=== PATIENT | female | born 1975 | race Caucasian/White ===

== ENCOUNTER 2016-10-25 13:11 | Emergency (ER) | payer OTHER, MEDICARE ==
[~2016-10-25] VITALS: Ht 162.6 cm; Wt 99.8 kg
[~2016-10-25 13:11] MED LIST: ALPRAZOLAM1 MG PO; CLONAZEPAM1 MG PO; DULOXETINE HYDR60 MG PO; HYDROXYZINE HCL25 MG PO; HYDROXYZINE50 MG PO; KELNOR 1/35 351 TAB PO; LOSARTAN POTASS50 MG PO; METFORMIN HCL750 MG PO; METFORMIN HYDR500 MG PO; MONTELUKAST SOD10 MG PO; NASONEX0.05 MG/Ac INH; PANTOPRAZOLE SO40 MG PO; QUETIAPINE FUM300 MG PO; SPIRONOLACTONE100 MG PO; TOPIRAMATE200 MG PO
--- NOTE | 2016-10-25 13:21 | ED PSYCHIATRIC COMPLAINT ---
See Addendum History of Present Illness General Chief Complaint: Psychiatric Related Complaint Stated Complaint: BIBA FOR +SI, PSYCH EVAL Source: patient, old records, EMS Exam Limitations: no limitations Vital Signs & Intake/Output Vital Signs & Intake/Output Vital Signs Date Time Temp Pulse Resp B/P B/P Pulse O2 O2 Flow FiO2 Mean Ox Delivery Rate 10/26 0624 98.8 73 20 109/57 99 Room Air 10/25 2225 98.0 74 16 102/65 95 Room Air 10/25 1951 97.7 77 16 97/53 99 Room Air 10/25 1900 97.6 83 12 110/52 100 Room Air 10/25 1549 97.9 93 12 104/58 100 Room Air 10/25 1349 Room Air 10/25 1330 97.6 80 18 133/80 100 ED Intake and Output 10/26 0000 10/25 1200 Intake Total Output Total Balance Patient 220 lb Weight Weight Reported by Patient Measurement Method Allergies Coded Allergies: tetanus and diphtheria toxoids (PT PASSED OUT FOR 12 HRS WHEN SHE WAS 12 ) Reconcile Medications Chlorpromazine HCl 200 MG TABLET 1 TAB PO QPM MENTAL HEALTH (Reported) Chlorpromazine HCl 50 MG TABLET MENTAL HEALTH (Reported) Duloxetine HCl 60 MG CAPSULE.DR 1 CAP PO BID MENTAL HEALTH (Reported) Ethynodiol D-Ethinyl Estradiol (Zovia 1-35E Tablet) 1 MG-35 MCG TABLET 1 TAB PO DAILY PCOS (Reported) Gabapentin 300 MG CAPSULE 1 CAP PO TID MENTAL HEALTH (Reported) Hydroxyzine HCl 50 MG TABLET 1 TAB PO TID ANXIETY (Reported) Losartan Potassium 50 MG TABLET 1 TAB PO DAILY HTN (Reported) Metformin HCl (Metformin HCl ER) 750 MG TAB.ER.24H 1 TAB PO BID PCOS ( Reported) Pantoprazole Sodium 40 MG TABLET.DR 1 TAB PO DAILY GI (Reported) Spironolactone 100 MG TABLET 1 TAB PO DAILY FLUID (Reported) Topiramate 100 MG TABLET 1 TAB PO BID UNKNOWN (Reported) Triage Nurses Notes Reviewed? yes HPI: Patient went to see her psychiatrist this morning for increasing depression with suicidal ideations. Patient states that she wants to overdose on her medications but they are all locked up. Patient was placed on a PEC and was sent for evaluation. Patient denies any homicidal ideations. Patient states that she has been taking her medications as prescribed. Patient denies any hallucinations. (DARY WAHL MD) Past History Travel History Traveled to [place] past 21 day No Medical History Any Pertinent Medical History? see below for history Neurological: None EENT: NONE Cardiovascular: hypertension, hyperlipidemia Respiratory: NONE Gastrointestinal: NONE Hepatic: NONE Renal: nephrolithiasis Musculoskeletal: NONE Psychiatric: anxiety, depression Endocrine: NONE Blood Disorders: NONE Cancer(s): NONE MUTUAL FUNDS AGENT/Reproductive: PCOS Surgical History Surgical History: non-contributory Psychosocial History Who do you live with Spouse What is your primary language Kiswahili Tobacco Use: Never used ETOH Use: denies use Illicit Drug Use: denies illicit drug use Family History Hx Contributory? No (DARY WAHL MD) Review of Systems Review of Systems Constitutional: Reports: no symptoms. EENTM: Reports: no symptoms. Respiratory: Reports: no symptoms. Cardiovascular: Reports: no symptoms. GI: Reports: no symptoms. Genitourinary: Reports: no symptoms. Musculoskeletal: Reports: no symptoms. Skin: Reports: no symptoms. Neurological/Psychological: Reports: see HPI, depressed. Hematologic/Endocrine: Reports: no symptoms. Immunologic/Allergic: Reports: no symptoms. All Other Systems: Reviewed and Negative (MARYURI EVANGELISTA,DARY Hdz) Physical Exam Physical Exam General Appearance: well developed/nourished, alert, awake, mild distress Head: atraumatic Eyes: Bilateral: PERRL, EOMI. Ears, Nose, Throat: normal pharynx, normal ENT inspection, hearing grossly normal Neck: normal inspection, supple Respiratory: normal breath sounds, chest non-tender, no respiratory distress, lungs clear Cardiovascular: regular rate/rhythm Gastrointestinal: normal bowel sounds, soft, non-tender Extremities: normal range of motion Neurological/Psychiatric: no motor/sensory deficits, awake, alert, flat Appearance/Memory/Insight: appropriate appearance, appropriate insight Behavoir/Eye Contact/Speech: cooperative, normal speech, good eye contact Thoughts/Hallucinations: normal thought pattern, no apparent hallucination Skin: intact, normal color, warm/dry SAD PERSONS Done? CRISIS CONSULT OBTAINED (DARY WAHL MD) Progress Differential Diagnosis: drug intoxication, drug overdose, drug withdrawal, electrolyte abnormality Plan of Care: Orders Procedure Date/time Status Continuous Observation Monitor 10/26 0700 Active Continuous Observation Monitor 10/26 0300 Active Regular Diet 10/25 D Active Continuous Observation Monitor 10/25 2300 Active Continuous Observation Monitor 10/25 1900 Active Continuous Observation Monitor 10/25 1319 Active URINE DRUGS OF ABUSE 10/25 1319 Complete HUMAN BETA HCG SCREEN 10/25 1319 Complete ETHANOL 10/25 1319 Complete COMPREHENSIVE METABOLIC PANEL 10/25 1319 Complete CBC WITHOUT DIFFERENTIAL 10/25 131 Complete ED CRISIS PSYCH CONSULT 10/25 1319 Active Current Medications Sig/Joelle Start time Last Medication Dose Stop Time Status Admin Duloxetine HCl 60 MG DAILY 10/26 1000 UNVr (Cymbalta) Losartan Potassium 50 MG DAILY 10/26 1000 UNVr (Cozaar) Spironolactone 100 MG DAILY 10/26 1000 UNVr (Aldactone) Metformin HCl 850 MG 0800,1700 10/26 0800 UNVr (Glucophage) Chlorpromazine 200 MG QPM 10/25 2200 UNV 10/25 (Thorazine 25MG Tab) 2204 Topiramate 100 MG BID 10/25 2200 UNVr (Topamax) Chlorpromazine 50 MG TID 10/25 1718 UNVr 10/25 (Thorazine 25MG Tab) 1731 Gabapentin 300 MG TID 10/25 171 UNVr 10/25 (Neurontin) 220 Hydroxyzine HCl 50 MG TID 10/25 171 UNVr 10/25 (Atarax) 2204 Laboratory Tests 10/25/16 1418: Urine Opiates Screen < 100.00, Methadone Screen 62, Barbiturate Screen < 60, Ur Phencyclidine Scrn < 6.00, Amphetamines Screen < 100, U Benzodiazepines Scrn < 85, Urine Cocaine Screen < 50, Urine Cannabis Screen < 5.00 10/25/16 1340: Anion Gap 12, Estimated GFR > 60, BUN/Creatinine Ratio 10.0, Glucose 84, Calcium 9.9, Total Bilirubin 0.4, AST 17, ALT 37, Alkaline Phosphatase 111, Total Protein 6.8, Albumin 4.2, Globulin 2.6, Albumin/Globulin Ratio 1.6, Total Beta HCG NEGATIVE, CBC w Diff NO MAN DIFF REQ, RBC 4.36, MCV 72.1 L, MCH 22.6 L, RDW 19.4 H, MPV 7.9, Gran % 70.0, Lymphocytes % 21.4, Monocytes % 6.7, Eosinophils % 1.5, Basophils % 0.4, Absolute Granulocytes 5.0, Absolute Lymphocytes 1.5, Absolute Monocytes 0.5, Absolute Eosinophils 0.1, Absolute Basophils 0, PUBS MCHC 31.4 L, Serum Alcohol < 10.0 Hand-Off Endorsed To: BRYAN REESE MD Endorsed Time: 190 Pending: consult (CRISIS) (DARY WAHL MD) Hand-Off Endorsed To: RASHMI JIMENEZ DO Endorsed Time: 07 Pending: consult (Crisis) (BRYAN REESE MD) Departure Departure Disposition: STILL A PATIENT Condition: Stable Referrals: NOEL SANZ MD (PCP/Family) Departure Forms: Customer Survey General Discharge Information (DARY WAHL MD) Departure Clinical Impression Primary Impression: Depression Qualifiers: Depression Type: major depressive disorder (BRYAN REESE MD) Departure Comments 10/26/16 7:00 AM Patient was signed out to me by Dr Reese. She is pending crisis evaluation (RASHMI JIMENEZ DO)
[2016-10-25 13:58] LABS: ABSOLUTE BASOPHIL COUNT 0 /CUMM (0.0-0.2); ABSOLUTE EOSINOPHIL COUNT 0.1 /CUMM (0.0-0.7); ABSOLUTE LYMPH COUNT 1.5 /CUMM (1.2-3.4); ABSOLUTE MONOCYTE COUNT 0.5 /CUMM (0.10-0.60); BASOPHIL % 0.4 % (0.0-2.0); EOSINOPHIL % 1.5 % (0-5); HEMATOCRIT 31.4 % (37-47); MEAN CORPUSCULAR HGB 22.6 PG (27.0-31.0); MEAN CORPUSCULAR HGB CONC 31.4 G/DL (33.0-37.0); MEAN CORPUSCULAR VOLUME 72.1 FL (81.0-99.0); MEAN PLATELET VOLUME 7.9 FL (7.4-10.4); PLATELET COUNT 327 /CUMM (130-400); RBC DISTRIBUTION WIDTH 19.4 % (11.5-14.5); RED BLOOD CELL CT 4.36 /CUMM (4.20-5.40); WHITE BLOOD CELL COUNT 7.1 /CUMM (4.8-10.8)
[2016-10-25] MEDS ORDERED: TOPIRAMATE100 M2 PO (14:18)
[2016-10-25] MEDS ORDERED: CHLORPROMAZINE200 M1 PO (16:29)
[2016-10-25] MEDS ORDERED: CHLORPROMAZINE50 M2 (16:30)
[2016-10-25] MEDS ORDERED: DULOXETINE HCL60 MG PO (16:32)
[2016-10-25] MEDS ORDERED: LOSARTAN POTASS50 M1 PO (16:46)
[2016-10-25] MEDS ORDERED: HYDROXYZINE HCL50 M1 PO (16:46)
[2016-10-25] MEDS ORDERED: PANTOPRAZOLE SO40 M1 PO (16:47)
[2016-10-25] MEDS ORDERED: SPIRONOLACTONE100 M1 PO (16:48)
[2016-10-25] MEDS ORDERED: GABAPENTIN300 M2 PO (16:55)
[2016-10-25] MEDS ORDERED: METFORMIN HCL750 M1 PO (16:55)
[2016-10-25] MEDS ORDERED: ZOVIA 1-35E TA1 EACH PO (16:56)
[2016-10-26 09:33] VITALS: BP 126/63
== END 2016-10-26 12:33 | disposition still patient (30) ==
LOC: ERH 13:11 → ENTRNSPT 20:59 → CMPTRNSPT 21:27 → ERH 10-26 12:33
PROVIDERS: Emergency Medicine
DX: F32.9 Major depressive disorder, single episode, unspecified (principal)
CPT/HCPCS: 80307; G0463; G0480